=== PATIENT | female | born 1980 | race Caucasian/White ===

== ENCOUNTER 2019-04-05 13:56 | Inpatient (IN) | payer OTHER ==
[~2019-04-05] VITALS: Ht 162.6 cm; Wt 66.0 kg
--- NOTE | 2019-04-05 14:08 | NUR ---
PATIENT BROUGHT IN BY [facility] AFTER SA- PATIENTS CALLED EMS AFTER PATIENT TOOK 25 CELEXA AND 1 FLEXERIL, WITH ETOH IN ATTEMPT TO KILL SELF. THE PATIENT IS ALERT, ORIENTED, WARM AND DRY. HOWEVER TEARFUL AND ANXIOUS. SAFETY PRECAUTIONS IN PLACE. ERMD LAW AT BEDSIDE.
[2019-04-05 14:31] LABS: BASOPHILS # (AUTO) 0.06 x10^3/uL (0-0.1); BASOPHILS % (AUTO) 0 % (0-1); EOSINOPHILS # (AUTO) 0.24 x10^3/uL (0-0.4); EOSINOPHILS % (AUTO) 1 % (1-7); LYMPHOCYTES # (AUTO) 1.35 x10^3/uL (1-3.4); LYMPHOCYTES % (AUTO) 8 % (22-44); MD NO; MEAN CORPUSCULAR HEMOGLOBIN 28.5 pg (27.0-34.8); MEAN CORPUSCULAR HGB CONC 32.6 g/dL (32.4-35.8); MEAN CORPUSCULAR VOLUME 87.4 fL (80-100); MEAN PLATELET VOLUME 8.9 fL (7.4-10.4); MONOCYTES # (AUTO) 0.39 x10^3/uL (0.2-0.8); MONOCYTES % (AUTO) 2 % (2-9); NEUTROPHILS # (AUTO) 15.41 x10^3/uL (1.8-6.8); NEUTROPHILS % (AUTO) 88 % (42-75); PLATELET COUNT 319 x10^3/uL (130-400); RED BLOOD COUNT 4.96 x10^6/uL (3.82-5.3); RED CELL DISTRIBUTION WIDTH 16.1 % (9.6-15.2)
--- NOTE | 2019-04-05 14:38 | NUR ---
TEODORA BARNHART BANNER MD [facility] # [phone]
[2019-04-05 14:42] LABS: ALBUMIN 3.8 g/dL (3.4-5.0); ANION GAP 15 mmol/L (5-15); CALCIUM 8.3 mg/dL (8.5-10.1); CHLORIDE 112 mmol/L (98-107)
[2019-04-05 14:52] LABS: ALANINE AMINOTRANSFERASE 31 U/L (12-78); ALKALINE PHOSPHATASE 66 U/L (45-117); BILIRUBIN,TOTAL 0.2 mg/dL (0.2-1.0); CREATININE 0.99 mg/dL (0.55-1.02); TOTAL PROTEIN 8.1 g/dL (6.4-8.2)
[2019-04-05 14:56] LABS: SALICYLATE LEVEL < 1.7 mg/dL (2.8-20.0)
[2019-04-05] MEDS ORDERED: MAGNESIUM SULFATE 1 GM/2 ML IVPush ONE ×2 (15:30)
[2019-04-05] MEDS ORDERED: POTASSIUM CHLORIDE 40 MEQ in SODIUM CHLORIDE 0.9% 500 ML IV ONE ×2 (15:30→18:00)
[2019-04-05] MEDS ORDERED: PLEASE ENTER ALLERGIES MC SCH (15:30)
--- NOTE | 2019-04-05 15:45 | NUR ---
ERMD LAW AT BEDSIDE FOR POC. ASSISTED PT TO BATHROOM FOR URINE SAMPLE
--- NOTE | 2019-04-05 15:48 | NUR ---
MEDS REQUESTED FROM PHARMACY
[2019-04-05] MEDS ORDERED: MAGNESIUM SULFATE 1 GM in SODIUM CHLORIDE 0.9% 50 ML IV ONE (16:00)
[2019-04-05] MEDS ORDERED: SODIUM CHLORIDE 0.9% 1,000 ML IV ONE (16:00)
--- NOTE | 2019-04-05 16:14 | NUR ---
PT RESTING IN BED, SAFETY PRECAUTIONS IN PLACE
[2019-04-05 16:42] LABS: AMPHETAMINE SCREEN, URINE Negative (Negative); BARBITURATE SCREEN, URINE Negative (Negative); BENZODIAZEPINE SCREEN, URINE Negative (Negative); CANNABINOID SCREEN, URINE Negative (Negative); COCAINE SCREEN, URINE Negative (Negative); METHADONE SCREEN, URINE Negative (Negative); OPIATE SCREEN, URINE Negative (Negative)
--- NOTE | 2019-04-05 17:16 | NUR ---
PT RESTING IN BED, SAFETY PRECAUTIONS IN PLACE
[2019-04-05] MEDS ORDERED: hydrALAzine 20 MG/ML, 1ML IVPush PRN (18:00)
[2019-04-05] MEDS ORDERED: ONDANSETRON 2MG/ML, 2ML IVPush PRN (18:00)
[2019-04-05] MEDS ORDERED: morphine SULFATE 10 MG/ML, 1ML IVPush PRN (18:00)
--- NOTE | 2019-04-05 18:10 | NUR ---
PT RESTING IN BED, SAEFTY PRECAUTIONS IN PLACE
--- NOTE | 2019-04-05 18:19 | NUR ---
THROUGHPUT RN: PT W/ [employer]. SPOKE W/ LARY AT [facility]. PACKET FAXED TO [phone]. CONFIRMATION RECEIVED AWAITING RESPONSE FROM LARY.
--- NOTE | 2019-04-05 19:00 | NUR ---
THROUGHPUT: ROOM BEING CLEANED PER [facility] & WILL CALL WHEN CLEAN.
--- NOTE | 2019-04-05 19:03 | NUR ---
REPORT RECEIVED FROM RN. PT RESTING COMFORTABLY.
--- NOTE | 2019-04-05 21:00 | NUR ---
SPOKE WITH POISON CONTROL. WOULD LIKE REPEAT EKG.
[2019-04-05] MEDS ORDERED: LORazepam 2 MG/ML, 1ML IVPush ONE (21:30)
[2019-04-05] MEDS ORDERED: LORazepam 2 MG/ML, 1ML ONE (21:33)
--- NOTE | 2019-04-05 23:19 | NUR ---
PT RESTING COMFORTABLY. SITTER AT BEDSIDE.
[2019-04-05] MEDS: SODIUM CHLORIDE 0.9% 1,000 ML IV SCH (23:30)
[2019-04-05] MEDS ORDERED: PANTOPRAZOLE 40 MG IV ONE (23:47)
[2019-04-05] MEDS: PANTOPRAZOLE 40 MG IV IVPush SCH (23:50)
--- NOTE | 2019-04-06 00:30 | NUR ---
SANDWICH PROVIDED TO PT.
[2019-04-06] MEDS: SODIUM CHLORIDE 0.9% 1,000 ML IV SCH ×4 (00:34→20:34)
--- NOTE | 2019-04-06 02:00 | NUR ---
PT RESTING WITH EYES CLOSED. SITTER AT DOOR.
--- NOTE | 2019-04-06 04:10 | NUR ---
PT RESTING WITH EYES CLOSED. SITTER AT DOOR.
[2019-04-06 05:42] LABS: BASOPHILS # (AUTO) 0.02 x10^3/uL (0-0.1); BASOPHILS % (AUTO) 0 % (0-1); EOSINOPHILS # (AUTO) 0.08 x10^3/uL (0-0.4); EOSINOPHILS % (AUTO) 1 % (1-7); LYMPHOCYTES # (AUTO) 1.95 x10^3/uL (1-3.4); LYMPHOCYTES % (AUTO) 18 % (22-44); MD NO; MEAN CORPUSCULAR HEMOGLOBIN 28.3 pg (27.0-34.8); MEAN CORPUSCULAR HGB CONC 32.7 g/dL (32.4-35.8); MEAN CORPUSCULAR VOLUME 86.5 fL (80-100); MEAN PLATELET VOLUME 8.4 fL (7.4-10.4); MONOCYTES # (AUTO) 0.44 x10^3/uL (0.2-0.8); MONOCYTES % (AUTO) 4 % (2-9); NEUTROPHILS # (AUTO) 8.39 x10^3/uL (1.8-6.8); NEUTROPHILS % (AUTO) 77 % (42-75); PLATELET COUNT 257 x10^3/uL (130-400); RED BLOOD COUNT 4.23 x10^6/uL (3.82-5.3); RED CELL DISTRIBUTION WIDTH 16.9 % (9.6-15.2)
[2019-04-06 05:44] LABS: ALANINE AMINOTRANSFERASE 23 U/L (12-78); ALBUMIN 3.3 g/dL (3.4-5.0); ANION GAP 7 mmol/L (5-15); CALCIUM 8.2 mg/dL (8.5-10.1); CHLORIDE 114 mmol/L (98-107); CREATININE 0.67 mg/dL (0.55-1.02)
[2019-04-06 05:47] LABS: ALKALINE PHOSPHATASE 55 U/L (45-117); BILIRUBIN,TOTAL 0.6 mg/dL (0.2-1.0); TOTAL PROTEIN 6.8 g/dL (6.4-8.2)
--- NOTE | 2019-04-06 09:45 | NUR ---
REPORT RECEIVED FROM ESTUARDO HANSON. PT A&O, RESPS EVEN AND UNLABORED. LINING MACHINE OPERATOR IN PLACE. PT DENIES ANY NEEDS AT THIS TIME. SITTER MONITORING FROM [facility] FOR SAFETY. HOSPITALIST SRIDHAR PAGED TO CLARIFY DIET ORDER AND PLACE ORDER FOR PSYC EVAL.
[2019-04-06] MEDS ORDERED: PANTOPRAZOLE 40 MG IV ONE (10:21)
[2019-04-06] MEDS: PANTOPRAZOLE 40 MG IV IVPush SCH ×2 (10:26→23:31)
--- NOTE | 2019-04-06 11:00 | NUR ---
PT UP TO BATHROOM WITH SITTER ASSIST, GAIT STEADY. PT A&O, RESPS EVEN AND UNLABORED, ROWANN.
--- NOTE | 2019-04-06 11:00 | NUR ---
THROUGHPUT RN: FARIDEH ON INTERNAL DISASTER LAST NOC AT 5605 04/05/19 UNABLE TO TAKE TRANSFER.
--- NOTE | 2019-04-06 11:26 | NUR ---
report given to break ESTUARDO Fabian. pt in room, all monitors in place. sitter monitoring from [facility] for safety.
--- NOTE | 2019-04-06 11:28 | NUR ---
TASK RN: PER REPORT, CALL HOSPITALIST AND REQUEST DIET TRAY AND PSYC EVALUATION. SPOKE WITH DR. WATSON REGARDING BOTH, SHE IS AWARE TO PUT ORDERS IN. PT NOW READING ON HOSP BED. ALL SAFETY MEASURES OBTAINED. NADN. RODRIGUEZTER AT DOORWAY.
--- NOTE | 2019-04-06 12:06 | NUR ---
TASK RN: DIET TRAY ORDERED.
--- NOTE | 2019-04-06 12:08 | NUR ---
TASK RN: BEDSIDE REPORT TO ESTUARDO ZHOU.
--- NOTE | 2019-04-06 12:30 | NUR ---
pt provided with clear liquid lunch.
--- NOTE | 2019-04-06 12:50 | NUR ---
magnesium and k phos gtt requested from pharmacy.
--- NOTE | 2019-04-06 13:36 | NUR ---
MEDS NOT ARRIVED YET FROM PHARMACY; IV K PHOS AND IV MAG RE-REQUESTED FROM PHARMACY. PT A&O, RESPS EVEN AND UNLABORED, PT DENIES PAIN. NSR ON FLY FINISHER. PT HAS NOT CONSUMED ANY OF HER DIET TRAY YET, SPEAKING WITH FATHER WHO IS AT BEDSIDE.
[2019-04-06] MEDS ORDERED: POTASSIUM PHOSPHATE 44 MEQ in SODIUM CHLORIDE 0.9% 500 ML IV ONE ×2 (14:00→22:30)
[2019-04-06] MEDS ORDERED: MAGNESIUM SULFATE 1 GM in SODIUM CHLORIDE 0.9% 50 ML IV ONE (14:00)
--- NOTE | 2019-04-06 14:00 | NUR ---
HOSPITALIST SHIRLEY AT BEDSIDE, REQUESTING REPEAT QT MEASUREMENT FROM CALL CENTER SPECIALIST, PER UC, QTC IS 440, HOSPISTALIST SHIRLEY NOTIFIED.
--- NOTE | 2019-04-06 14:13 | NUR ---
magnesium package damaged, new magnesium requested from pharmacy.
--- NOTE | 2019-04-06 14:53 | NUR ---
PIV placement attempted x 3 by this RN without success, task RN to start second PIV to run IV magnesium. pt a&ox4, resps even and unlabored. NSR on manager monitoring, no ectopy noted. pt states she is no longer SI at this time. pt speaking with father who is at bedside at this time.
--- NOTE | 2019-04-06 14:56 | NUR ---
ORDER FOR UA NOTED BY THIS RN; LAB CALLED TO SEE IF URINE IN LAB MAY BE USED. PER LAB, NEW SPECIMAN NEEDS TO BE COLLECTED. PT GIVEN INSTRUCTIONS TO PROVIDE CLEAN CATCH URINE SAMPLE WHEN ABLE. SUPPLIES PROVIDED. SITTER MONITORING FROM [facility] FOR SAFETY. FATHER AT BEDSIDE.
[2019-04-06] MEDS ORDERED: BIRTH CONTROL PO (15:21)
--- NOTE | 2019-04-06 15:41 | NUR ---
REPORT GIVEN TO RN'S TRESA AND FORTUNATO. PT A&O, RESPS EVEN AND UNLABORED. NSR ON HADOOP SOFTWARE ENGINEER WITH NO ECTOPY. FATHER AT BEDSIDE. SITTER MONITORING FROM [facility] FOR SAFETY.
--- NOTE | 2019-04-06 15:41 | NUR ---
PRECEPTOR NOTE: CALL MADE TO HAVE PT MEDICALLY CLEARED DUE TO NORMAL QT INTERVAL NOW AND REQUEST OF DENNIS ON CARD TELE. PER DR. WATSON, SHE WILL REVIEW HER LABS AND SIGN MEDICAL CLEARANCE IF APPROPRIATE.
--- NOTE | 2019-04-06 15:47 | NUR ---
ASSUMED PT CARE
--- NOTE | 2019-04-06 16:30 | NUR ---
LATE ENTRY: PT IN ROOM WITH FAMILY. READING BOOKS. NO REQUESTS AT THIS TIME
--- NOTE | 2019-04-06 18:31 | NUR ---
LATE ENTRY: PT IN ROOM WITH FAMILY. READING BOOKS. NO REQUESTS AT THIS TIME
[2019-04-06 20:00] VITALS: BP 123/80
[2019-04-07] MEDS ORDERED: LORA-445 PO (01:10)
[2019-04-07 03:03] VITALS: BP 135/93
[2019-04-07 05:41] LABS: BASOPHILS # (AUTO) 0.02 x10^3/uL (0-0.1); BASOPHILS % (AUTO) 0 % (0-1); EOSINOPHILS # (AUTO) 0.12 x10^3/uL (0-0.4); EOSINOPHILS % (AUTO) 2 % (1-7); LYMPHOCYTES # (AUTO) 1.75 x10^3/uL (1-3.4); LYMPHOCYTES % (AUTO) 25 % (22-44); MD NO; MEAN CORPUSCULAR HEMOGLOBIN 28.7 pg (27.0-34.8); MEAN CORPUSCULAR HGB CONC 33.2 g/dL (32.4-35.8); MEAN CORPUSCULAR VOLUME 86.4 fL (80-100); MEAN PLATELET VOLUME 8.6 fL (7.4-10.4); MONOCYTES # (AUTO) 0.36 x10^3/uL (0.2-0.8); MONOCYTES % (AUTO) 5 % (2-9); NEUTROPHILS # (AUTO) 4.81 x10^3/uL (1.8-6.8); NEUTROPHILS % (AUTO) 68 % (42-75); PLATELET COUNT 222 x10^3/uL (130-400); RED BLOOD COUNT 3.95 x10^6/uL (3.82-5.3); RED CELL DISTRIBUTION WIDTH 16.6 % (9.6-15.2)
[2019-04-07 05:44] LABS: CHLORIDE 113 mmol/L (98-107)
[2019-04-07 05:53] LABS: ALANINE AMINOTRANSFERASE 24 U/L (12-78); ALBUMIN 3.1 g/dL (3.4-5.0); ALKALINE PHOSPHATASE 57 U/L (45-117); ANION GAP 7 mmol/L (5-15); BILIRUBIN,TOTAL 0.4 mg/dL (0.2-1.0); CREATININE 0.59 mg/dL (0.55-1.02); TOTAL PROTEIN 6.5 g/dL (6.4-8.2)
[2019-04-07 05:54] LABS: CULTURE INDICATED? YES; MICROSCOPIC INDICATED
[2019-04-07] MEDS: SODIUM CHLORIDE 0.9% 1,000 ML IV SCH ×3 (06:36→22:06)
[2019-04-07] MEDS: PANTOPRAZOLE 40 MG IV IVPush SCH ×2 (08:16→22:01)
[2019-04-07] MEDS ORDERED: NEUTRA PHOS K 250 MG TABLET PO SCH (11:30)
[2019-04-07 13:40] VITALS: BP 127/84
[2019-04-07] MEDS ORDERED: POTASSIUM PHOSPHATE 44 MEQ in SODIUM CHLORIDE 0.9% 500 ML IV ONE (14:30)
[2019-04-07 21:03] VITALS: BP 120/80
[2019-04-08] MEDS: SODIUM CHLORIDE 0.9% 1,000 ML IV SCH ×3 (03:20→16:30)
[2019-04-08 04:54] VITALS: BP 118/88
[2019-04-08 06:07] LABS: ALBUMIN 3.3 g/dL (3.4-5.0); ANION GAP 6 mmol/L (5-15); CALCIUM 8.5 mg/dL (8.5-10.1); CHLORIDE 110 mmol/L (98-107)
[2019-04-08 06:11] LABS: ALANINE AMINOTRANSFERASE 24 U/L (12-78); ALKALINE PHOSPHATASE 62 U/L (45-117); BILIRUBIN,TOTAL 0.9 mg/dL (0.2-1.0); CREATININE 0.76 mg/dL (0.55-1.02)
[2019-04-08 08:39] VITALS: BP 127/84
[2019-04-08] MEDS: PANTOPRAZOLE 40 MG IV IVPush SCH ×2 (09:00→20:51)
[2019-04-08 15:59] VITALS: BP 127/86
[2019-04-08] MEDS ORDERED: ACETAMINOPHEN 325 MG TABLET PO PRN (17:00)
[2019-04-08 21:00] VITALS: BP 114/80
[2019-04-09 03:08] VITALS: BP 100/68
[2019-04-09] MEDS: OMEPRAZOLE 20 MG CAPSULE.DR PO SCH ×2 (05:51→15:52)
[2019-04-09 08:22] VITALS: BP 125/83
[2019-04-09 13:04] VITALS: BP 136/87
== END 2019-04-09 16:56 | DRG 918 ==
LOC: ED 16:59 → EDIP 17:00 → ED 17:24 → 3N 04-06 19:39 → DCLOUNGE 04-09 16:55
PROVIDERS: ADMIT Internal Medicine; ATTEND Internal Medicine
DX: T50.992A Poisoning by other drugs, medicaments and biological substances, intentional self-harm, initial encounter (principal); E87.2 Acidosis; T43.222A Poisoning by selective serotonin reuptake inhibitors, intentional self-harm, initial encounter; Y92.89 Other specified places as the place of occurrence of the external cause; F32.9 Major depressive disorder, single episode, unspecified; F41.9 Anxiety disorder, unspecified; R94.31 Abnormal electrocardiogram [ECG] [EKG]; E87.6 Hypokalemia; R00.0 Tachycardia, unspecified; F10.129 Alcohol abuse with intoxication, unspecified; E83.39 Other disorders of phosphorus metabolism; Z91.5 Personal history of self-harm
CPT/HCPCS: 36415; 80053; 80307; 81001; 83735; 84100; 84132; 84439; 84443; 84703; 85025; 87086; 93005; 96361; 96365; 96366; 96367; 96375; G0378; J3475; J3480; C9113; J2060; J7030; J7040